=== PATIENT | male | born 1970 | race Caucasian/White ===

== ENCOUNTER 2017-04-22 17:45 | Inpatient (IN) | payer MEDICAID ==
[~2017-04-22] VITALS: Ht 175.3 cm; Wt 86.2 kg
--- NOTE | 2017-04-22 18:00 | NUR ---
Pt denies SI/HI. Pt states "I want more drink".
[2017-04-22] MEDS ORDERED: IV NS 1000 ML 1,000 ML IV ONE (18:15)
[2017-04-22 18:36] LABS: BASOPHILS # (AUTO) 0.1 K/uL (0.0-8.0); BASOPHILS % (AUTO) 0.5 % (0.0-2.0); EOSINOPHILS # (AUTO) 0.1 K/uL (0.0-0.7); EOSINOPHILS % (AUTO) 0.6 % (0.0-7.0); HEMATOCRIT 46.2 % (36.7-47.1); HEMOGLOBIN 15.9 g/dL (12.5-16.3); LYMPHOCYTES # (AUTO) 1.6 K/uL (20.0-40.0); LYMPHOCYTES % (AUTO) 16.3 % (20.5-51.5); MEAN CORPUSCULAR HEMOGLOBIN 32.4 uug (23.8-33.4); MEAN CORPUSCULAR HGB CONC 34 g/dL (32.5-36.3); MEAN CORPUSCULAR VOLUME 94.3 fL (73.0-96.2); MONOCYTES # (AUTO) 0.5 K/uL (2.0-10.0); MONOCYTES % (AUTO) 4.6 % (0.0-11.0); NEUTROPHILS # (AUTO) 7.7 K/uL (1.8-8.9); PLATELET COUNT (AUTO) 256 K/uL (152-348); WHITE BLOOD COUNT (AUTO) 9.9 K/uL (3.6-10.2)
[2017-04-22 18:47] LABS: CREATININE 0.9 mg/dL (0.6-1.3); POTASSIUM 3.9 mmol/L (3.5-5.1)
[2017-04-22 18:52] LABS: BILIRUBIN,TOTAL 0.7 mg/dL (0.2-1.0); TOTAL PROTEIN, SERUM 7.7 g/dL (6.4-8.2)
[2017-04-22] MEDS ORDERED: LORAZEPAM 2 MG/1 ML VIAL IV ONE ×3 (19:30→21:15)
--- NOTE | 2017-04-22 19:35 | NUR ---
REPORT GIVEN BY SARAI CAMPOS. PT FOUND IN BED W/ BOTH HANDS CUFFED TO BED RAILS W/ [employer] AT BEDSIDE. PT IS VISABLY AGITATED AND WANTS TO BE RELEASED. AWAITING FURTHER MD ORDERS.
[2017-04-22 20:02] LABS: ACETAMINOPHEN < 2.0 ug/mL (10-30)
[2017-04-22] MEDS ORDERED: LORAZEPAM 2 MG/1 ML VIAL ONE ×3 (20:09→21:36)
--- NOTE | 2017-04-22 20:35 | NUR ---
PT IN BED. PT RELEASED FROM [employer] CUSTODY. PT GOT OUT OF BED AND BEGAN DISRUPTING OTHER PTS. PT REDIRECTED BACK TO BED BACK KEPT GETTING OUT. MD NOTIFIED. PER MD ORDERS PT PLACED IN HARD RESTRAINTS AND OFFERED BEVERAGE.
[2017-04-22] MEDS ORDERED: IV NORMAL SALINE 1000 ML BAG IV ONE (21:15)
--- NOTE | 2017-04-22 21:35 | NUR ---
PT IN BED RECEIVING FLUIDS. PT IS STILL IN RESTRAINTS. PT STILL AGITATED AND CONFUSED. PT IS HALLUCINATING-STATING THAT "SHE TOUCHED ME" WHEN NO ONE WAS PRESENT. WILL CONTINUE TO MONITOR.
[2017-04-22] MEDS ORDERED: diphenhydrAMINE 50 MG/1 ML VIAL IV ONE (21:45)
[2017-04-22] MEDS ORDERED: diphenhydrAMINE 50 MG/1 ML VIAL ONE (22:03)
--- NOTE | 2017-04-22 22:20 | NUR ---
PT STILL IN RESTRAINTS. PT STILL VISUABLY AGITATED. PT STILL TRYING TO REMOVE RESTRAINTS. AWARE.
--- NOTE | 2017-04-22 23:24 | NUR ---
ARMS RESTRAINTS SWITCHED TO PT'S COMFORT, PO FLUIDS OFFERED, PT IN NO DISTRESS
[2017-04-23] VITALS (8 sets, daily range): BP systolic 98–148; BP diastolic 54–88
[2017-04-23 01:20] LABS: *BILIRUBIN,URIN NEGATIVE (NEGATIVE); *BLOOD, URINE 1+ (NEGATIVE); *CLARITY,URINE CLEAR (CLEAR); *COLOR,URINE YELLOW (YELLOW); *KETONES,URINE NEGATIVE (NEGATIVE); *PROTEIN,URINE TRACE (NEGATIVE); *UROBILINOGEN,URINE 0.2 E.U./dl (NORMAL); LEUKOCYTE ESTERASE ,URINE NEGATIVE (NEGATIVE); NITRITE, URINE NEGATIVE (NEGATIVE); PH,URINE 5.5 (5.0-8.0); UGLUCOSE NEGATIVE (NEGATIVE)
[2017-04-23 01:32] LABS: *AMPHETAMINE, URINE NEGATIVE (NEGATIVE); *BARBITURATE, URINE NEGATIVE (NEGATIVE); *CANNABINOID, URINE NEGATIVE (NEGATIVE); *COCCAINE, URINE NEGATIVE (NEGATIVE); *OPIATE, URINE NEGATIVE (NEGATIVE); *PHENCYCLIDINE SCREEN,URINE NEGATIVE (NEGATIVE)
[2017-04-23 01:33] LABS: BACTERIA,URINE NONE SEEN /HPF (NONE SEEN); SQUAMOUS EPITHELIAL CELL,UR FEW /HPF (NONE SEEN); WBC,URINE NONE SEEN /HPF (0-3)
[2017-04-23] MEDS ORDERED: IV D5W-0.45% NS 1000 ML BAG IV ONE (01:45)
[2017-04-23] MEDS ORDERED: FOLIC ACID 5 MG/ML VIAL IV ONE ×2 (01:45→02:15)
[2017-04-23] MEDS ORDERED: HYDROCODONE/APAP 5-325MG TABLET PO PRN (01:45)
[2017-04-23] MEDS ORDERED: LORAZEPAM 2 MG/1 ML VIAL IV ONE (01:45)
[2017-04-23] MEDS ORDERED: ONDANSETRON 4 MG/2 ML VIAL IV PRN (01:45)
[2017-04-23] MEDS ORDERED: Z GUARD REMEDY PASTE 57 GM TUBE TOP PRN (01:45)
[2017-04-23] MEDS ORDERED: THIAMINE HCL INJ 100 MG in IV DEXTROSE 5% 50 ML IV SCH (01:45)
[2017-04-23] MEDS ORDERED: MAGNESIUM SULFATE/D5W 100 ML IV SCH (01:45)
[2017-04-23] MEDS ORDERED: LORAZEPAM 2 MG/1 ML VIAL IV PRN (01:45)
[2017-04-23] MEDS ORDERED: THIAMINE HCL 200 MG/2 ML VIAL IV ONE (01:45)
[2017-04-23] MEDS ORDERED: MORPHINE SULFATE 2 MG/1 ML DISP.SYRIN IV PRN (01:45)
[2017-04-23] MEDS ORDERED: MAGNESIUM HYDROXIDE 30 ML LIQUID UDC PO PRN (01:45)
[2017-04-23] MEDS ORDERED: ACETAMINOPHEN 325 MG TABLET PO PRN (01:45)
[2017-04-23] MEDS ORDERED: LORAZEPAM 2 MG/1 ML VIAL ONE ×2 (02:00→06:41)
[2017-04-23] MEDS ORDERED: THIAMINE HCL 200 MG/2 ML VIAL ONE (02:15)
[2017-04-23] MEDS ORDERED: MAGNESIUM SULFATE/D5W 100 ML ONE (02:33)
--- NOTE | 2017-04-23 02:48 | NUR ---
pt in no distress, awake, hallucinating, restless, report given to ERIKA CAMPOS.
--- NOTE | 2017-04-23 02:50 | NUR ---
Pt. admitted to [facility] , under care of [facility] completed
--- NOTE | 2017-04-23 03:00 | NUR ---
Admitted a 47 y.o male patient from ER via [facility] with DX: ETOH abuse and DTs. Walked from [facility] to [facility] with ER RNs assisting; gait unsteady. Patient able to follow commands but disoriented and confused. Needs frequent re-direction. Some words garbled and with strong alcohol breath. Assessment completed. Addendum: 04/23/17 at 0553 by ERIKA CAMACHO RN Amended: Links added.
--- NOTE | 2017-04-23 03:05 | NUR ---
Vit B1 IV not given. Patient received a dose in ER @ 0214.
--- NOTE | 2017-04-23 03:15 | NUR ---
Voided clear yung urine per urinal. Patient wants to make a phone call. Reoriented and advised appropriately. Placed on fall precautions. Addendum: 04/23/17 at 0556 by ERIKA CAMACHO RN Amended: Links added. Addendum: 04/23/17 at 0602 by ERKIA CAMACHO RN Amended: Links added.
[2017-04-23] MEDS: IV NS 1000 ML 1,000 ML IV PRN ×3 (03:33→16:51)
--- NOTE | 2017-04-23 04:00 | NUR ---
Unable to obtain admission data; patient confused, disoriented. Some verbal words are garbled. No family available. Addendum: 04/23/17 at 0602 by ERIKA CAMACHO RN Amended: Links added.
--- NOTE | 2017-04-23 06:25 | NUR ---
Patient woke up, trying to get out of bed. Reoriented. Ativan IV given. VS stable.
[2017-04-23] MEDS: LORAZEPAM 2 MG/1 ML VIAL IV PRN ×4 (06:29→19:46)
--- NOTE | 2017-04-23 07:15 | NUR ---
Patient trying to get out of bed again. Wants to go home. Plan of care discussed with patient. Unable to give telephone numbers of family. With increasing restless; rolando rocha called.
--- NOTE | 2017-04-23 07:20 | NUR ---
In bed for now; on fall precautions. Traffic Rate Clerk here; aware of patient's attempts to get out of bed and go home. IV infusing well. Report given to Kalli CAMPOS.
[2017-04-23] MEDS ORDERED: MORPHINE SULFATE 4 MG/1 ML DISP.SYRIN IV PRN (08:00)
[2017-04-23] MEDS: PANTOPRAZOLE SODIUM 40 MG VIAL IV SCH (08:20)
[2017-04-23] MEDS: THIAMINE HCL 100 MG TABLET PO SCH (08:20)
[2017-04-23] MEDS: FOLIC ACID 1 MG TABLET PO SCH (08:20)
--- NOTE | 2017-04-23 09:30 | NUR ---
Patient remains restless agitated, and as requested, walked to the bathroom at this time, despite been educated on contraindications due to unsteady gait, girlfriend at bedside. Patient verbalizing desire to go home against medical advice.
--- NOTE | 2017-04-23 09:45 | NUR ---
Attending physician notified of pt's restlessness, agitation and desire to go home AMA.
--- NOTE | 2017-04-23 11:20 | NUR ---
Dr. Colin Bradshaw in the unit to examine patient, full report given see orders. also spoke with patient and discuss plan of care. Pt's girlfriend at bedside.
[2017-04-23] MEDS: HALOPERIDOL LACTATE 5 MG/1 ML VIAL IM PRN ×2 (11:24→21:17)
[2017-04-23] MEDS: NYSTATIN SUSPENSION 5 ML LIQUID UDC PO SCH ×2 (16:51→20:43)
--- NOTE | 2017-04-23 19:30 | NUR ---
Report received. Patient awake, mildly agitated and asking why he has to stay here and wanting to smoke. Claims he smokes 2 packs/day. Reoriented. Plan of care discussed with patient. Advised safety and fall precautions. Assessment done. Call placed to [facility]. Spoke to Colin Bradshaw; order received. Addendum: 04/24/17 at 0000 by ERIKA CAMACHO RN Amended: Links added.
--- NOTE | 2017-04-23 19:40 | NUR ---
Dinner serve; ate fairly well. Refused PM care.
--- NOTE | 2017-04-23 19:45 | NUR ---
With increasing restlessness; medicated with Ativan IV.
--- NOTE | 2017-04-23 20:30 | NUR ---
Girlfriend at bedside. Patient forgets and repeatedly asks why he has to stay here. Reoriented PRN. Patient stood up at side of bed to void; gait still unsteady. Voided clear yung urine. Call light at bedside and within reached. Addendum: 04/24/17 at 0008 by ERIKA CAMACHO RN Amended: Links added.
[2017-04-23] MEDS: NICOTINE 21 MG/24HR PATCH TD SCH (21:09)
--- NOTE | 2017-04-23 21:15 | NUR ---
Patient requesting for medication for sleep and anxiety. Haldol given. Addendum: 04/24/17 at 0011 by ERIKA CAMACHO RN Amended: Links added.
[2017-04-24] VITALS: BP 117/61
[2017-04-24] MEDS: IV NS 1000 ML 1,000 ML IV PRN ×2 (00:25→08:06)
--- NOTE | 2017-04-24 01:00 | NUR ---
Transferred to [address] per wheelchair. All belongings with patient upon transfer including cell phone and glasses. Report given to Aronl CAMPOS.
--- NOTE | 2017-04-24 01:00 | NUR ---
Received transfer report from ICU nurse. Patient awake and coherent though appears sleepy. Denies any pain/discomforts at this time. IVF continues. Continue plan of care.
--- NOTE | 2017-04-24 01:05 | NUR ---
Farhana provided and at bedside for safety.
[2017-04-24] MEDS: LORAZEPAM 2 MG/1 ML VIAL IV PRN ×2 (04:10→09:57)
--- NOTE | 2017-04-24 04:10 | NUR ---
Ativan IVP given as needed and ordered. Will monitor.
--- NOTE | 2017-04-24 06:04 | NUR ---
Slept good. Sitter at bedside. Cooperative with care. No agitation /restlessness presented. All needs attended and met. Continue care as planned.
[2017-04-24 06:59] LABS: BASOPHILS % (AUTO) 0.3 % (0.0-2.0); EOSINOPHILS # (AUTO) 0.4 K/uL (0.0-0.7); LYMPHOCYTES % (AUTO) 16.1 % (20.5-51.5); MEAN CORPUSCULAR HEMOGLOBIN 32.8 uug (23.8-33.4); MEAN CORPUSCULAR HGB CONC 35 g/dL (32.5-36.3); MEAN CORPUSCULAR VOLUME 94.3 fL (73.0-96.2); MONOCYTES # (AUTO) 0.4 K/uL (2.0-10.0); MONOCYTES % (AUTO) 6.8 % (0.0-11.0); NEUTROPHILS # (AUTO) 4.2 K/uL (1.8-8.9); NEUTROPHILS % (AUTO) 70.8 % (38.5-71.5); RED BLOOD CELL COUNT(AUTO) 4.04 MIL/uL (4.06-5.63)
[2017-04-24 07:11] LABS: HEMOGLOBIN 13.2 g/dL (12.5-16.3); PLATELET COUNT (AUTO) 148 K/uL (152-348)
--- NOTE | 2017-04-24 07:30 | NUR ---
Pt.in bed,A/A/Ox3,forgetfull,no s/s of acute distress,denies pain @ time.sever tremors noted.
[2017-04-24 08:00] VITALS: BP 121/64
[2017-04-24] MEDS: FOLIC ACID 1 MG TABLET PO SCH (08:06)
[2017-04-24] MEDS: NYSTATIN SUSPENSION 5 ML LIQUID UDC PO SCH (08:06)
[2017-04-24] MEDS: THIAMINE HCL 100 MG TABLET PO SCH (08:06)
[2017-04-24] MEDS: PANTOPRAZOLE SODIUM 40 MG VIAL IV SCH (08:06)
[2017-04-24] MEDS: NICOTINE 21 MG/24HR PATCH TD SCH (08:07)
[2017-04-24 08:50] LABS: CREATININE 0.7 mg/dL (0.6-1.3); MAGNESIUM 1.9 mg/dL (1.8-2.4); PHOSPHOROUS 2.4 mg/dL (2.5-4.9); POTASSIUM 3.8 mmol/L (3.5-5.1)
--- NOTE | 2017-04-24 10:00 | NUR ---
pt.getting s/s of agitation ,stated that want to leave ,was explained that need to be seen by MD . Tremors of viral.arms noted, Ativan IV given,family member at bedside.DNP:Colin Bradshaw notified.
--- NOTE | 2017-04-24 10:45 | NUR ---
Pt.was seen by DNP:Colin Bradshaw with d/c orders.
[2017-04-24] MEDS ORDERED: THIA100T13 PO (11:07)
[2017-04-24] MEDS ORDERED: LORA2TAB PO ×2 (11:07→11:08)
[2017-04-24] MEDS ORDERED: FOLI1TAB16 PO (11:07)
[2017-04-24] MEDS ORDERED: NYST5ORA PO (11:07)
[2017-04-24 11:20] VITALS: BP 136/86
--- NOTE | 2017-04-24 11:52 | NUR ---
Pt.was d/c home ,education provided,when home with girlfriend.
[2017-04-24 14:41] VITALS: BP 170/65
== END 2017-04-24 11:55 | disposition home or self-care (01) | DRG 774 ==
LOC: ER 17:48 → CCU 04-23 02:38 → MED 04-24 01:10 → TELE-TD 04-24 01:10
PROVIDERS: ADMIT Internal Medicine; ATTEND Nurse Practitioner Acute Care
DX: F10.231 Alcohol dependence with withdrawal delirium (principal); F14.90 Cocaine use, unspecified, uncomplicated; E87.0 Hyperosmolality and hypernatremia; E83.51 Hypocalcemia; B37.0 Candidal stomatitis; Y90.8 Blood alcohol level of 240 mg/100 ml or more; Z83.3 Family history of diabetes mellitus; Z82.49 Family history of ischemic heart disease and other diseases of the circulatory system; G47.00 Insomnia, unspecified; F17.290 Nicotine dependence, other tobacco product, uncomplicated
CPT/HCPCS: 36415; 70030-TC; 71045; 80307; 83735; 84100; 85025; 93005; A4663; C1758; C9113; G0480; G0480-TC; J1200; J1630; J2060; J3411; J3475; J3490; J7030